=== PATIENT | female | born 1945 | race Caucasian/White ===

== ENCOUNTER → 2020-09-05 | Day surgery (SDC) | payer MEDICARE ==
[~2020-09-05] VITALS: Ht 167.6 cm; Wt 62.3 kg
[~2020-09-05] MED LIST: ALPR0.5T8 PO; ASPIRIN 325 MG TABLET PO ONE; ATEN-73 PO; CYCL05OE OU; FentaNYL CITRATE PF 100 MCG/2 ML VIAL IVP ONE; FentaNYL CITRATE PF 100 MCG/2 ML VIAL ONE; HEPARIN SODIUM 1000 UNITS/NS 1,000 ML IARTER ONE; HEPARIN SODIUM 1000 UNITS/NS 1,000 ML ONE; IOHEXOL 300 MG/ML 100 ML VIAL ONE; IOHEXOL 300 MG/ML 150 ML VIAL IARTER ONE; IOHEXOL 300 MG/ML 150 ML VIAL ONE; IOHEXOL 300 MG/ML 50 ML VIAL ONE; LIDOCAINE 1% 30 ML/SOD BICARB 8.4% 4 ML SQ ONE; LIDOCAINE/PF 1% 30 ML VIAL ONE; MIDAZOLAM HCL 2 MG/2 ML VIAL IVP ONE; MIDAZOLAM HCL 2 MG/2 ML VIAL ONE; PANT40TA54 PO; RANO500T6 PO; SODIUM BICARBONATE 50 MEQ/50 ML VIAL ONE; SODIUM CHLORIDE 0.9% 1,000 ML IV ONE; SODIUM CHLORIDE 0.9% 1,000 ML ONE; SODIUM CHLORIDE 0.9% 500 ML IV ONE
[2020-09-05 08:39] LABS: BASOPHILS % (AUTO) 1.3 % (0.0-2.0); EOSINOPHILS % (AUTO) 3.7 % (1.0-6.0); HEMATOCRIT 40.8 % (36-46); HEMOGLOBIN 13.4 g/dL (12.0-16.0); LYMPHOCYTES # (AUTO) 1.7 K/uL (1.0-4.8); LYMPHOCYTES % (AUTO) 35.5 % (22.0-44.0); MEAN CORPUSCULAR HEMOGLOBIN 31.7 pg (26.0-34.0); MEAN CORPUSCULAR HGB CONC 32.8 G/dL (31.0-37.0); MEAN CORPUSCULAR VOLUME 97 fL (80-100); MONOCYTES # (AUTO) 0.4 K/uL (0.1-1.0); MONOCYTES % (AUTO) 7.5 % (2.0-9.0); NEUTROPHILS # (AUTO) 2.5 K/uL (1.8-7.7); PLATELET COUNT (AUTO) 177 K/uL (150-450); RED BLOOD CELL COUNT(AUTO) 4.23 MIL/uL (4.00-5.20); RED CELL DISTRIBUTION WIDTH 12.8 % (11.5-14.5)
[2020-09-05 08:49] LABS: ANION GAP 7 mmol/L (8-16); CALCIUM, TOTAL 9.3 mg/dL (8.8-10.5); CARBON DIOXIDE 29 mmol/L (22-29); CHLORIDE 107 mmol/L (98-107); CREATININE 0.87 mg/dL (0.60-1.30); GLOMERULAR FILTR. RATE CALC > 60 mL/min (>60); GLUCOSE,RANDOM 92 mg/dL (70-110); POTASSIUM 4.3 mmol/L (3.5-5.1); SODIUM SERUM 143 mmol/L (136-145); UREA NITROGEN, BLOOD 21 mg/dL (7-18)
[2020-09-05 08:55] LABS: ALANINE AMINOTRANSFERASE 41 U/L (12-78); ALKALINE PHOSPHATASE 52 U/L (46-116); ASPARTATE AMINOTRANSFERASE 17 U/L (15-37); BILIRUBIN,TOTAL 0.4 mg/dL (0.1-1.0); TOTAL PROTEIN, SERUM 7.7 g/dL (6.4-8.2)
[2020-09-05 09:19] VITALS: BP 138/66
[2020-09-05 10:05] VITALS: BP 130/53
== END | disposition home or self-care (01) ==
LOC: CATHLAB 07:50
PROVIDERS: ATTEND Specialist
DX: R07.9 Chest pain, unspecified (principal); Z79.899 Other long term (current) drug therapy; Z72.89 Other problems related to lifestyle; I10 Essential (primary) hypertension; K21.9 Gastro-esophageal reflux disease without esophagitis; F41.9 Anxiety disorder, unspecified; Z98.890 Other specified postprocedural states; Z79.1 Long term (current) use of non-steroidal anti-inflammatories (NSAID)
CPT/HCPCS: 36415; 80053; 85025; 85610; 85730; 93005; 93458; 99152; C1760; J1644; J2250; J3010; J3490 ×2; J7030; Q9967 ×2